=== PATIENT | male | born 1980 | race Caucasian/White ===

== ENCOUNTER → 2025-03-03 | Outpatient (CLI) | payer BC ==
[2025-03-03 15:25] LABS: HCT 47.8 % (39.6-50.0); HGB 16.1 g/dL (13.0-17.0); MCH 29.0 pg (27.0-32.0); MCHC 33.7 g/dL (32.0-37.0); MCV 86.1 FL (80.0-97.0); NRBC Per 100 WBC 0 X 10*3/uL (0.00-0.01); Platelet Count 267 X 10*3/uL (140-440); RBC 5.55 X 10*6/uL (4.40-5.60); RDW 12.4 % (11.5-14.5); WBC 5.98 X 10*3/uL (4.50-10.00)
[2025-03-03 15:55] LABS: ALT 23 U/L (10-49); AST 24 U/L (14-35); Anion Gap 10.50 mmol/L (4.00-12.00); BUN/Creat Ratio 12.78 Ratio (12.00-20.00); Blood Urea Nitrogen 11.5 mg/dL (9.0-27.0); Calcium 9.3 mg/dL (8.7-10.3); Carbon Dioxide 25.5 mmol/L (21.6-31.8); Chloride 105 mmol/L (96-109); Cholesterol 130.00 mg/dL (0.00-200.00); Glucose 101 mg/dL (70-110); HDL Cholesterol 31.30 mg/dL (40.00-60.00); LDL Cholesterol,Calculated 71.7 mg/dL (0.0-131.0); Potassium 4.3 mmol/L (3.5-5.5); Sodium 141 mmol/L (135-145); Triglycerides 135.00 mg/dL (0.00-149.00); VLDL Calculation 27.00 mg/dL (5.00-40.00)
== END | disposition home or self-care (01) ==
LOC: LABWHC1 08:34
PROVIDERS: ATTEND Internal Medicine Cardiovascular Disease
DX: E78.2 Mixed hyperlipidemia (principal); R00.2 Palpitations
CPT/HCPCS: 36415; 80048; 80061; 84443; 84450; 84460; 85027